=== PATIENT | male | born 1945 | race Caucasian/White ===

== ENCOUNTER → 2016-08-06 | Outpatient (CLI) | payer BC ==
[~2016-08-06] MED LIST: ASPI81TA28 PO; B-COTAB18 PO; CHOL100041 PO; CHOL400T PO; CIPR-255 PO; MULT-506 PO; OXYC-57 PO; PHEN95TA14 PO; SIMV20TA2 PO; TAMS0.4C38 PO
== END | disposition home or self-care (01) ==
LOC: C.PATH 15:04
PROVIDERS: ATTEND Dentist Oral and Maxillofacial Surgery
DX: K13.6 Irritative hyperplasia of oral mucosa (principal)

== ENCOUNTER → 2016-12-30 | Outpatient (CLI) | payer BC ==
[~2016-12-30] MED LIST changes: -CHOL100041 PO; -CIPR-255 PO; -OXYC-57 PO; -PHEN95TA14 PO; -TAMS0.4C38 PO
--- NOTE | 2016-12-30 09:48 | DIAGNOSTIC IMAGING REPORT ---
KUB HISTORY: N13.5 UPJ (ureteropelvic junction) [id number] COMPARISON: KUB 01/08/2016. FINDINGS: The bowel gas pattern is unremarkable. There are no dilated loops of small bowel to suggest an obstruction. There is a single stone within the lower pole the left kidney which measures 6 mm. 2 of the stones within the lower pole of the left kidney now reside within the cluster of stones at the expected location of the left renal pelvis. There are total 5 stones now identified within the left renal pelvis with the largest measuring 8 mm. No right renal calculi. No bladder calculi. No pneumoperitoneum or pneumatosis. IMPRESSION: 1. Two of the stones seen within the lower pole of the left kidney on the prior study have moved to the cluster of stones within the left renal pelvis as described above. 2. No right renal calculi. Electronically signed by: Clifford Kerr M.D. 12/30/2016 9:47 AM Dictated Date/Time: 12/30/2016 9:44 AM
--- NOTE | 2017-01-05 11:02 | CODING QUERY MEDICAL NECESSITY ---
CQSUPPORTING DIAGNOSIS NEEDED A supporting diagnosis is required for the test/procedure performed on this patient in order for us to be reimbursed by the patient's insurance. Please provide a supporting diagnosis for the following test/procedure listed below next to the test name along with your signature. *If there is no additional diagnosis for this patient that would support the following test/procedure please document that below next to the test/procedure. Test(s)/Procedure(s) that require a supporting diagnosis: DOS 12/30/16 PROSTATE SPECIFIC ANTIGEN (PSA) Provider Signature: Date: Thank you Ngoc [facility] Health Information Management Once completed, please kindly fax back to [phone] For questions please call [phone]
== END | disposition home or self-care (01) ==
LOC: C.RAD 09:15
PROVIDERS: ATTEND Urology
DX: N13.5 Crossing vessel and stricture of ureter without hydronephrosis (principal); N20.0 Calculus of kidney; Z12.5 Encounter for screening for malignant neoplasm of prostate

== ENCOUNTER → 2017-03-01 | Outpatient (CLI) | payer BC ==
--- NOTE | 2017-03-01 13:48 | DIAGNOSTIC IMAGING REPORT ---
KUB CLINICAL HISTORY: Gross hematuria. Nephrolithiasis. FINDINGS: An AP abdominal radiograph is compared to study dated 12/30/2016 and correlated with abdominal CT dated 07/02/2015. There are 6 calculi identified projecting over the left renal pelvis and the lower pole of the left kidney measuring up to 8 mm. No calcifications are seen projecting over the right kidney or along the course of the ureters. Vascular calcifications are again seen in the pelvis. There is a nonobstructed abdominal bowel gas pattern. Mild lumbosacral spondylosis is observed. IMPRESSION: 1. There are at least 6 nonobstructing left renal calculi measuring up to 8 mm. 2. Additional calculi project over the lower pole of the left kidney. Electronically signed by: Herb Christianson M.D. 03/01/2017 1:47 PM Dictated Date/Time: 03/01/2017 1:45 PM
== END | disposition home or self-care (01) ==
LOC: C.RAD 12:56
PROVIDERS: ATTEND Urology
DX: R31.0 Gross hematuria (principal); N20.0 Calculus of kidney

== ENCOUNTER → 2017-03-03 | Outpatient (CLI) | payer BC ==
[~2017-03-03] MED LIST changes: +CHOL100041 PO
== END | disposition home or self-care (01) ==
LOC: C.LABSPEC 17:17
PROVIDERS: ATTEND Urology
DX: Z00.00 Encounter for general adult medical examination without abnormal findings (principal); Z85.828 Personal history of other malignant neoplasm of skin; N13.30 Unspecified hydronephrosis; L57.0 Actinic keratosis; R31.0 Gross hematuria

== ENCOUNTER 2017-04-13 08:54 | Day surgery (SDC) | payer BC ==
[2017-03-29 14:17] VITALS: BMI 29.0
--- NOTE | 2017-03-29 14:39 | PAT Medication Instructions ---
Service Date Mar 29, 2017. Current Home Medication List Aspirin (Aspirin Ec), 81 MG PO QAM B-Complex Vitamins (Vitamin B Complex), 1 TAB PO QAM Cholecalciferol (D 1000), 1 CAP PO QAM Multivitamin (Multivitamin), 1 TAB PO QAM Simvastatin (Zocor), 10 MG PO QPM Medication Instructions For Your Scheduled Surgery - Hold the following medications 10 days prior to surgery per surgeon's instructions: Aspirin (Aspirin Ec), 81 MG PO QAM - Hold the following medications the morning of surgery: B-Complex Vitamins (Vitamin B Complex), 1 TAB PO QAM Cholecalciferol (D 1000), 1 CAP PO QAM Multivitamin (Multivitamin), 1 TAB PO QAM - Take the following medications as scheduled the night before surgery: Simvastatin (Zocor), 10 MG PO QPM *nothing to eat or drink after midnight* If you have any questions please call us at [phone] or [phone] or [phone]
[2017-03-29 15:08] LABS: BASO % 0.7 %; BASO ABS # 0.05 K/uL (0-0.2); COMPLETE YES; EOS % 4.2 %; IG% 0.1 %; LYMPH % 22.8 %; LYMPH ABS # 1.72 K/uL (1.2-3.4); MEAN CELL VOLUME 91.7 fL (80-100); MEAN CORPUSCULAR HEMOGLOBIN 31.8 pg (25-34); MEAN CORPUSCULAR HGB CONC 34.6 g/dl (32-36); NEUT % 59.2 %; PLATELET COUNT 243 K/uL (130-400); RED BLOOD COUNT 4.47 M/uL (4.7-6.1); WHITE BLOOD COUNT 7.54 K/uL (4.8-10.8)
--- NOTE | 2017-03-29 15:10 | DIAGNOSTIC IMAGING REPORT ---
CHEST PREADMISSION(PA/LAT) HISTORY: Preop. COMPARISON: Chest 12/09/2005. FINDINGS: The lungs are clear. Cardiac silhouette is normal in size. No pleural effusions. No pneumothorax. IMPRESSION: No acute process. Electronically signed by: Clifford Kerr M.D. 03/29/2017 3:09 PM Dictated Date/Time: 03/29/2017 3:07 PM
[2017-03-29 15:11] LABS: URINE APPEARANCE CLEAR (CLEAR); URINE BILIRUBIN NEG (NEG); URINE COLOR DK YELLOW; URINE NITRITE NEG (NEG); URINE PH 6.5 (4.5-7.5); URINE SPECIFIC GRAVITY 1.024 (1.000-1.030); UROBILINOGEN NEG (NEG)
[2017-03-29 15:16] LABS: MANUAL MICROSCOPIC REQUIRED? NO; REVIEW REQ? NO
[2017-03-29 15:42] LABS: BUN/CREATININE RATIO 13.2 (10-20); CALCIUM 9.6 mg/dl (8.5-10.1); CREATININE 1.11 mg/dl (0.60-1.40)
[~2017-04-13] VITALS: Ht 177.8 cm; Wt 91.5 kg
[~2017-04-13 08:54] MED LIST changes: +ATROPINE SULFATE 0.1 MG/ML 5ML SYR IV PRN; -CHOL400T PO; +CIPROFLOXACIN / D5W 400 MG IV SCH; +EpHEDrine SULFATE INJ 50 MG/ML AMP IV PRN; +FENTANYL CITRATE INJ 50 MCG/1 ML 2 ML VIAL IV PRN; +HYDROmorphone INJ 0.5 MG/0.5 ML SYR IV PRN; +LACTATED RINGER'S 1000ML 1,000 ML IV SCH; +ONDANSETRON INJ 2 MG/ML 2 ML VIAL IV PRN
[2017-04-13] MEDS ORDERED: MIDAZOLAM HCL 1 MG/ML 2ML VIAL ONE (09:17)
[2017-04-13] MEDS ORDERED: FENTANYL CITRATE INJ 50 MCG/1 ML 2 ML VIAL ONE ×2 (09:17→10:59)
[2017-04-13 09:19] VITALS: BP 160/88; PULSE 76; TEMP 37.1; O2SAT 97; Ht 177.8 cm; Wt 91.5 kg
--- NOTE | 2017-04-13 09:27 | History & Physical Bridge Note ---
H&P Re-Evaluation Bridge Note: I have examined the patient, reviewed the History & Physical and in the interval since the performance of the History & Physical I have noted the following changes of clinical significance: No changes noted
[2017-04-13] MEDS ORDERED: CONRAY 30% 150ML BOTTLE ONE (09:51)
[2017-04-13] MEDS ORDERED: PROPOFOL IV EMULSION 10 MG/ML 20 ML VIAL IV ONE (10:42)
[2017-04-13] MEDS ORDERED: ONDANSETRON INJ 2 MG/ML 2 ML VIAL ONE (10:42)
[2017-04-13] MEDS ORDERED: LIDOCAINE HCL 2% 2 ML VIAL (20MG/ML) ONE (10:42)
[2017-04-13] MEDS ORDERED: DEXAMETHASONE SOD INJ 4 MG/ML VIAL ONE (10:42)
[2017-04-13] MEDS ORDERED: PHENAZOPYRIDINE HCL 200 MG TAB PO STA (12:05)
[2017-04-13] MEDS ORDERED: KETOROLAC TROMETHAMINE 15 MG/ML VIAL IV. STA (12:05)
[2017-04-13] MEDS ORDERED: SODIUM CHLORIDE 0.9% 1000ML 1,000 ML IV SCH (12:05)
[2017-04-13] MEDS ORDERED: TAMS0.4C38 PO (12:08)
[2017-04-13] MEDS ORDERED: PHEN95TA14 PO (12:08)
[2017-04-13] MEDS ORDERED: OXYC-57 PO (12:08)
[2017-04-13] MEDS ORDERED: CIPR-255 PO (12:08)
--- NOTE | 2017-04-13 12:10 | Discharge Instructions ---
Discharge Instructions Date of Service Apr 13, 2017. Admission Reason for Admission: Stones Discharge Discharge Diagnosis / Problem: stones Discharge Goals Goal(s): Decrease discomfort, Improve function, Increase independence, Improve disease control, Prevent Disease Progression Activity Recommendations Activity Limitations: resume your previous activity Lifting Limitations: none Exercise/Sports Limitations: none May Resume Sexual Activity: when tolerated Shower/Bathe: no limitations Driving or Machine Use: resume 1 day after discharge . Instructions / Follow-Up Instructions / Follow-Up Please keep your previously scheduled follow up appointment. Current Hospital Diet Patient's current hospital diet: Discharge Diet Recommended Diet: Regular Diet Procedures Procedures Performed: Cystoscopy, Left Ureteroscopy, Laser Lithotripsy, Left Stent insertion Pending Studies Studies pending at discharge: no Medical Emergencies . Who to Call and When: Medical Emergencies: If at any time you feel your situation is an emergency, please call 911 immediately. . Non-Emergent Contact Non-Emergency issues call your: Urologist Call Non-Emergent contact if: you have a fever, temperature is above 101.5, your pain is not controlled, your pain is worsening . . "Provider Documentation" section prepared by Reji Rodriguez. . VTE Core Measure Inpt VTE Proph given/why not?: Treatment not indicated [place] Drug Monitoring Program Search Results: patient reviewed within database, no issues identified
--- NOTE | 2017-04-13 12:14 | [facility] Operative Report ---
Operative Report Operative Date Apr 13, 2017. Pre-Operative Diagnosis Ureteropelvic junction obstruction, nephrolithiasis. Post-Operative Diagnosis Same as preop. Procedure(s) Performed Cystoscopy, Left Ureteroscopy, Laser Lithotripsy, Left Stent insertion ([id number]) Surgeon Dr. Simmons Computing Architect Surgeon(s) None Estimated Blood Loss 5 ml Findings Numerous stones within a very dilated left renal pelvis and lower pole Specimens none. Drains ureteral stent Anesthesia Gen. Complication(s) None Disposition Recovery Room / PACU (stable) Indications Symptomatically adrenal stones in the setting of low-grade UPJ obstruction Description of Procedure The patient was identified in the preoperative holding area, appropriate informed consent reviewed and completed, and the patient was transported to the operating suite. Upon arrival he received appropriate preoperative antibiotics in the form of ciprofloxacin. Adequate general anesthesia was achieved, and he was placed in dorsal lithotomy position where he was sterilely prepped and draped in standard fashion. I began the case by passing a 22 Guamanian cystoscope with 30 lens. Inspection of the urethra revealed no evidence of significant stricture disease. He has a moderately enlarged prostate with relatively high bladder neck. Full inspection of the bladder was carried out, no abnormalities were noted. I turned my attention to the left ureteral orifice and cannulated it with a sensor wire and a 10 Guamanian double-lumen catheter. Of note, numerous opacities are visualized in the area of the kidney consistent with the stones seen on preoperative imaging. After advancing a second wire through the 10 Guamanian double-lumen catheter, I withdrew the 10 Guamanian double-lumen catheter. I then passed a ureteral access sheath to an area just below the UPJ. A flexible scope was passed via the sheath, and inspection of the UPJ revealed a very tight band. I was able to navigate my scope through this band into the kidney. The renal pelvis and all calyx is were all very dilated. There were 3 round appearing stones floating freely in the renal pelvis. 2 stones in the midpole and 3-4 stones in the lower pole. All of these were very round and smooth in appearance. I passed a 400 laser fiber and began fragmenting the stones. After treating the renal pelvic stones, I moved to the midpole, followed by the lower pole. All stones were fragmented pieces deemed safe for spontaneous passage. The renal pelvis and the midpole cleared appropriately, the lower pole was fragmented very well but there was still some layering of the remaining stone debris in the dependent portion of the lower pole. There were no large fragments within this that I could identify. I then performed a very careful repeat renoscopy before performing an exit ureteroscopy. There were no other large stones within the kidney nor within the ureter. There is no evidence of ureteral trauma from access sheath. A 6 Guamanian by 22-32 centimeter double-J ureteral stent was placed with an excellent curl seen in the renal pelvis as well as in the bladder. Bladder was decompressed and the case concluded. He was extubated and taken to the PACU in stable condition. I attest to the content of the Intraoperative Record and any orders documented therein. Any exceptions are noted below.
[2017-04-13] MEDS ORDERED: OXYCODONE/ACETAMINOPHEN 5-325 TAB PO PRN ×2 (12:15)
--- NOTE | 2017-04-13 12:37 | DIAGNOSTIC IMAGING REPORT ---
L KUB HISTORY: LEFT LASER/LITHO AND STENT PLACEMENT FLUOROSCOPY TIME: 51 seconds. FINDINGS: 5 fluoroscopic spot images were submitted for review. Initial images demonstrate multiple calculi seen within the left kidney and left renal pelvis. This is followed by retrograde placement of a guidewire and lithotripsy. The final image demonstrates placement of a left ureteral stent. Only the proximal portion of the stent is identified appears to be in good position. IMPRESSION: Fluoroscopy provided for lithotripsy and left ureteral stent placement . The proximal portion of the stent is identified and appears to be in good position. Electronically signed by: Clifford Kerr M.D. 04/13/2017 12:36 PM Dictated Date/Time: 04/13/2017 12:30 PM
--- NOTE | 2017-04-13 12:43 | Anesthesiology Progress Note ---
Anesthesia Post Op Note Date & Time Apr 13, 2017 at 12:43 Vital Signs Pain Intensity: 0 Vital Signs Past 12 Hours Date Time Temp Pulse Resp B/P (MAP) Pulse Ox O2 Delivery O2 Flow Rate FiO2 04/13/17 12:28 36.2 72 16 139/88 (104) 95 Room Air Oxymask 04/13/17 12:23 69 10 04/13/17 12:23 69 10 100 04/13/17 12:20 142/81 04/13/17 12:18 63 10 100 04/13/17 12:18 65 10 04/13/17 12:16 139/81 04/13/17 12:08 36.0 64 18 137/77 99 Oxymask 10 04/13/17 09:19 37.1 76 18 160/88 (112) 97 Room Air Notes Mental Status: alert / awake / arousable, participated in evaluation Pt Amnestic to Procedure: Yes Nausea / Vomiting: adequately controlled Pain: adequately controlled Airway Patency, RR, SpO2: stable & adequate BP & HR: stable & adequate Hydration State: stable & adequate Anesthetic Complications: no major complications apparent
[2017-04-13 12:55] VITALS: BP 142/71; PULSE 63; TEMP 36.6; O2SAT 94
[2017-04-13 13:25] VITALS: BP 151/63; PULSE 63; O2SAT 96
[2017-04-13 14:00] VITALS: BP 136/75; PULSE 64; TEMP 36.5; O2SAT 94
== END 2017-04-13 14:20 | disposition home or self-care (01) ==
LOC: C.ACU 08:54
PROVIDERS: ATTEND Urology
DX: N20.0 Calculus of kidney (principal); N13.5 Crossing vessel and stricture of ureter without hydronephrosis; Z79.82 Long term (current) use of aspirin; Z79.899 Other long term (current) drug therapy

== ENCOUNTER → 2017-04-20 | Outpatient (CLI) | payer BC ==
[~2017-04-20] MED LIST changes: -ATROPINE SULFATE 0.1 MG/ML 5ML SYR IV PRN; +CIPR-255 PO; -CIPROFLOXACIN / D5W 400 MG IV SCH; -EpHEDrine SULFATE INJ 50 MG/ML AMP IV PRN; -FENTANYL CITRATE INJ 50 MCG/1 ML 2 ML VIAL IV PRN; -HYDROmorphone INJ 0.5 MG/0.5 ML SYR IV PRN; -LACTATED RINGER'S 1000ML 1,000 ML IV SCH; -ONDANSETRON INJ 2 MG/ML 2 ML VIAL IV PRN; +OXYC-57 PO; +PHEN95TA14 PO; +TAMS0.4C38 PO
--- NOTE | 2017-04-20 10:22 | DIAGNOSTIC IMAGING REPORT ---
KUB HISTORY: Nephrolithiasis. COMPARISON: KUB 03/01/2017. FINDINGS: The bowel gas pattern is unremarkable. There are no dilated loops of small bowel to suggest an obstruction. Interval placement of left ureteral stent which appears be in good position. No ureteral calculi identified. Decrease in number of stones within the left kidney. The lower pole stone is now fragmented. The stones seen within the left renal pelvis have passed in the interval. No pneumoperitoneum or pneumatosis. IMPRESSION: 1. The left ureteral stent appears be in good position. 2. Decrease in number of stones within the left kidney with the lower pole stones now fragmented. Electronically signed by: Clifford Kerr M.D. 04/20/2017 10:21 AM Dictated Date/Time: 04/20/2017 10:19 AM
== END | disposition home or self-care (01) ==
LOC: C.RAD 09:57
PROVIDERS: ATTEND Urology
DX: N20.0 Calculus of kidney (principal)

== ENCOUNTER → 2017-05-12 | Outpatient (CLI) | payer BC ==
[~2017-05-12] MED LIST changes: -TAMS0.4C38 PO
== END | disposition home or self-care (01) ==
LOC: C.RDSM 11:43
PROVIDERS: ATTEND Physical Medicine & Rehabilitation Sports Medicine
DX: M25.561 Pain in right knee (principal)

== ENCOUNTER → 2017-08-26 | Outpatient (CLI) | payer BC | END | disposition home or self-care (01) | LOC: C.PATHSPEC 17:26 | PROVIDERS: ATTEND Physician Assistant | DX: C44.519 Basal cell carcinoma of skin of other part of trunk (principal) ==

== ENCOUNTER → 2017-09-16 | Outpatient (CLI) | payer BC | END | disposition home or self-care (01) | LOC: C.PATHSPEC 10:26 | PROVIDERS: ATTEND Plastic Surgery | DX: C44.519 Basal cell carcinoma of skin of other part of trunk (principal) ==

== ENCOUNTER 2024-07-14 20:06 | Inpatient (IN) ==
--- NOTE | 2024-07-14 20:22 | Emergency Department Note ---
Impression & Plan Closed left femoral fracture, Fall ED Provider Note NAME: UYEN PHILLIPS AGE: 78 SEX: M : 1945 ARRIVES VIA: Ambulance INFORMANT: Patient, EMS ED PROVIDER(S): Abilio Grant DO CHIEF COMPLAINT: Leg pain HPI: The patient is a 78-year-old male who presented to the emergency department for an evaluation of left thigh pain. 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 He states that he tripped and was trying to catch his balance. He planted his left leg and all of a sudden his left leg gave out on him. He fell onto his left side. The patient denies having any other injury. He has pain over his left thigh. He denies having any back pain or neck pain. He did not strike his head. He denies having any loss of conscious. He did receive fentanyl prior to arrival. ROS: See above HPI for pertinent positives & negatives. A total of 10 systems reviewed and were otherwise negative. PAST MEDICAL HISTORY: See Below PAST SURGICAL HISTORY: See Below FAMILY HISTORY: See Below SOCIAL HISTORY: See Below HOME MEDICATIONS: See Below ALLERGIES: See Below VITALS: See Below PHYSICAL EXAMINATION: GENERAL: The patient is awake and alert. The patient is very anxious and appears to be uncomfortable. EYES: The conjunctivae are clear. The pupils are round and reactive. EARS, NOSE, MOUTH AND THROAT: The nose is without any evidence of any deformity. NECK: The neck is nontender and supple. RESPIRATORY: Normal respiratory effort is noted there is no evidence of wheezing rhonchi or rales CARDIOVASCULAR: Regular rate and rhythm noted there no murmurs rubs or gallops normal S1 normal S2. GASTROINTESTINAL: The abdomen is soft. Abdomen is nontender. BACK: No midline tenderness or or step-off noted range of motion in flexion extension as well as rotation no signs of muscle spasm noted MUSCULOSKELETAL/EXTREMITIES: The patient is holding the left thigh in flexion. He has a significant deformity of the soft tissue of the lateral left thigh. He has no tenderness over the knee or the left leg. He has no tenderness over the hip. He has swelling over the medial aspect of the left thigh. SKIN: There is no obvious evidence of any rash. There are no petechiae, pallor or cyanosis noted. NEUROLOGIC: Patient is awake alert and oriented x3 MEDICAL DECISION MAKING: The patient is a 78-year-old male who has a history of a soft tissue tumor on his left thigh who presented to the emergency department for thigh pain. The patient was walking when he started to trip. He planted his left leg and felt a pop in his left leg. He fell to the ground and was unable to stand. He arrived via ambulance. He received IV pain medication prior to arrival. The patient appeared to have a large soft tissue deficit but this might be secondary to his previous surgery for a soft tissue tumor. Ultimately the patient was found on radiographic studies to have a large fracture of the shaft of his left femur. The bone does have an abnormal appearance but is not obviously consistent with a pathologic fracture. This could be related to the patient's radiation he received years ago when he initially had the tumor. He was treated with pain medication and splinting. He was reevaluated multiple times. I discussed his condition with the on-call orthopedic physician. They have agreed to see the patient as an inpatient for further management. I discussed patient's condition with the on-call [facility]. They have agreed to evaluate the patient in the emergency department. Triage Nursing notes reviewed. Prior medical records reviewed Vital Signs: reviewed and remarkable for elevated blood pressure. Differential diagnosis: Fracture, subluxation, dislocation, contusion, ligamentous injury, neurovascular, compartment syndrome, rhabdomyolysis, as well as other pathologies. ER treatment provided: See below Diagnostics interpreted by me: ECG: EKG was obtained in the emergency department. My interpretation is normal sinus rhythm at 70 bpm. There is no ectopy. There is no acute ST segment abnormalities noted. Cardiac Monitoring: An order was placed for continuous cardiac monitoring. The monitor shows a rate of 88 bpm with sinus rhythm. Laboratory studies: As stated above and show below. Imaging studies: See below. Radiographic imaging was reviewed by myself Consultation(s): I discussed this case with Dr. August I discussed this case with Dr. Camilo who is on-call for [facility] Past Med/Surg History Problem List (Updated 07/14/24 @ 22:14 by Abilio Grant DO) Fall (Acute) Closed left femoral fracture (Acute) Carpal tunnel syndrome, right Carpal tunnel syndrome, left Encounter for pre-operative examination Nephrolithiasis UPJ (ureteropelvic junction) obstruction (Acute) Personal history of malignant melanoma of skin (Acute) Left inguinal hernia (Acute) Calcium nephrolithiasis Squamous cell carcinoma of skin (Acute) Neoplasm of uncertain behavior of skin (Acute) Malignant melanoma of back (Acute) Basal cell carcinoma of upper back (Acute) Actinic keratosis (Acute) History of cancer of soft tissue >20 YR , HX CHEMO AND RADIATION - SOFT TISSUE SARCOMA Medical History History of COVID-19 + TEST BEGINNING OF JUN 2020 History of kidney stones History of basal cell cancer MULTIPLE IN PAST, MOST RECENT MAY 2020 (HEALED) Sarcoma of soft tissue HX, >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 ,HX SURGERY, HX CHEMO AND RADIATION History of melanoma X2 Hypercholesteremia Surgical History History of surgery FOR SARCOMA OF SOFT TISSUE, LEFT LEG History of colonoscopy History of repair of hiatal hernia History of lithotripsy History of melanoma excision X2 Hx of vasectomy Family History Sister Diabetes Social History Smoking Status: Never smoker Do You Dip or Chew Tobacco: No; Hx Alcohol Use: Yes Alcohol type: beer and wine Preferred Language: Sinhala Communication Ability: Effective Nursing Clerk Required: No Beliefs That Will Affect Care: None marital status: Current Living Situation: Spouse current occupational status: retired Feels Safe at Home: Yes Assistive Devices: Glasses and Hearing Aid - Bilateral Allergies Allergies Allergy/AdvReac Type Severity Reaction Status Date / Time No Known Allergies Allergy Verified 04/25/24 09:06 Home Meds Home Medications Medication Instructions Recorded Confirmed cholecalciferol (vitamin D3) 25 1,000 unit PO DAILY 02/16/19 04/25/24 mcg (1,000 unit) tablet multivitamin (Multiple Vitamins 1 tab PO DAILY 02/16/19 04/25/24 tablet) vitamin B complex 1 tab PO DAILY 02/16/19 04/25/24 simvastatin 20 mg tablet 10 mg PO QPM 09/24/20 04/25/24 Results & Data (ED) Vital Signs Vital Signs - 24 hr 07/14/24 20:11 07/14/24 20:12 07/14/24 20:22 Temperature 36.5 C Temperature Source Oral Pulse Rate 71 75 Pulse Rate [Apical] Respiratory Rate 18 Respiratory Effort / Characteristics Non-Labored Spontaneous Respiratory Depth Normal Respiratory Pattern Regular Blood Pressure 152/78 H Blood Pressure [Right Arm] Blood Pressure Mean 102 Blood Pressure Mean [Right Arm] Blood Pressure Position Lying Pulse Oximetry 98 98 Oxygen Delivery Method Room Air Room Air Sepsis Recent Fever Within 48 Hours No Sepsis New/Unexplained Change in Mental Status N/A Sepsis Action Taken by Nursing No Action Required 07/14/24 21:33 Temperature Temperature Source Pulse Rate Pulse Rate [Apical] 78 Respiratory Rate 18 Respiratory Effort / Characteristics Non-Labored Respiratory Depth Normal Respiratory Pattern Blood Pressure Blood Pressure [Right Arm] 163/102 H Blood Pressure Mean Blood Pressure Mean [Right Arm] 122 Blood Pressure Position Pulse Oximetry 99 Oxygen Delivery Method Room Air Sepsis Recent Fever Within 48 Hours Sepsis New/Unexplained Change in Mental Status Sepsis Action Taken by [facility] Medications Current Medication List: was personally reviewed by me Laboratory Data Attestation: I reviewed the patient's lab results. 07/14/24 20:25 07/14/24 20:25 Lab Results 07/14/24 Range/Units 20:25 WBC 8.89 (4.8-10.8) K/ul RBC 4.45 L (4.70-6.10) M/uL Hgb 14.2 (14.0-18.0) g/dl Hct 40.2 L (42.0-52.0) % MCV 90.3 (80.0-100.0) fL MCH 31.9 (25.0-34.0) pg MCHC 35.3 (32.0-36.0) g/dL RDW Std Deviation 45.5 (36.4-46.3) fL RDW Coeff of Rachel 13.7 (11.5-14.5) % Plt Count 269 (130-400) K/uL MPV 10.6 (9.4-12.4) fL Immature Gran % (Auto) 0.2 % Neut % (Auto) 69.1 % Lymph % (Auto) 18.6 % Peach % (Auto) 9.6 % Eos % (Auto) 1.8 % Baso % (Auto) 0.7 % Neut # (Auto) 6.15 (1.40-6.50) K/uL Lymph # (Auto) 1.65 (1.20-3.40) K/uL Peach # (Auto) 0.85 H (0.11-0.59) K/uL Eos # (Auto) 0.16 (0.00-0.50) K/uL Baso # (Auto) 0.06 (0.00-0.20) K/uL Immature Gran # (Auto) 0.02 (0.01-0.20) K/uL PT 11.4 (9.0-12.0) Seconds INR 1.1 (0.9-1.1) APTT 25 (21-31) Seconds PTT Ratio 0.9 Sodium 136 (136-145) mmol/L Potassium 3.9 (3.5-5.1) mmol/L Chloride 101 (98-107) mmol/L Carbon Dioxide 27 (21-32) mmol/L Anion Gap 8 (3-11) BUN 20 (6-23) mg/dl Creatinine 1.04 (0.6-1.4) mg/dl Est Cr Clr Drug Dosing 66.4 ml/min eGFR 73.50 BUN/Creatinine Ratio 19.2 (10-20) Glucose 106 H (70-99(Fasting)) mg/dl Calcium 9.5 (8.6-10.3) mg/dl Total Bilirubin 1.3 H (0.2-1.0) mg/dl AST 34 (13-39) U/L ALT 35 (7-52) U/L Alkaline Phosphatase 103 (34-104) U/L Troponin I High Sens 7.2 (0-20) pg/ml Total Protein 7.5 (6.0-8.3) gm/dl Albumin 4.6 (3.4-5.0) gm/dl Globulin 2.9 (2.5-4.0) gm/dl Albumin/Globulin Ratio 1.6 (0.9-2) Lipase 26 (11-82) U/L Administered Medications Discontinued Medications Morphine Sulfate (Morphine Sulfate 4 Mg/Ml 1 Ml Carp\Vial) 4 mg IV NOW STA Stop: 07/14/24 20:16 Last Admin: 07/14/24 20:24 Dose: 4 mg Documented By: Imaging Data Attestation: I personally reviewed and interpreted this imaging study as follows: My Impression: 1 view chest x-ray was obtained in the emergency department. My interpretation is no free air or definite infiltrate, final report pending. X-ray of the left femur was obtained in the emergency department. My interpretation is fracture through the shaft of the left femur, there was displacement as well as some shortening, final report pending Discharge Plan Visit Data Chief Complaint: Leg Injury/Pain Stated Complaint: L Femur Fx ED Provider: Abilio Grant Discharge Problem: Closed left femoral fracture, Fall Patient Disposition: Being Evaluated by Hospitalist Forms Stand Alone Forms: My [facility] Prescriptions Prescriptions: No Action cholecalciferol (vitamin D3) 1,000 unit (25 mcg) tablet 1,000 unit PO DAILY multivitamin [Multiple Vitamins] tablet 1 tab PO DAILY vitamin B complex tablet 1 tab PO DAILY simvastatin 20 mg tablet 10 mg PO QPM Referrals Referrals: David Linton DO [Primary Care Provider] - Discharge Problem: Closed left femoral fracture Qualifiers: Encounter type: initial encounter Femur location: unspecified portion of femur Fracture morphology: unspecified fracture morphology Qualified Code(s): S72.92XA - Unspecified fracture of left femur, initial encounter for closed fracture
[2024-07-14] MEDS: MoRPHine SULFATE 4 MG/ML 1 ML CARP\\VIAL IV STA (20:24)
[2024-07-14 20:54] LABS: Basophils # (auto) 0.06 K/uL (0.00-0.20); Basophils % (auto) 0.7 %; Eosinophils # (auto) 0.16 K/uL (0.00-0.50); Eosinophils % (auto) 1.8 %; Hematocrit (blood only) 40.2 % (42.0-52.0); Hemoglobin 14.2 g/dl (14.0-18.0); Immature Granulocytes # (auto) 0.02 K/uL (0.01-0.20); Immature Granulocytes % (auto) 0.2 %; Lymphocytes # (auto) 1.65 K/uL (1.20-3.40); Lymphocytes % (auto) 18.6 %; Mean Corpuscular Hemoglobin 31.9 pg (25.0-34.0); Mean Corpuscular Hgb Conc 35.3 g/dL (32.0-36.0); Mean Corpuscular Volume 90.3 fL (80.0-100.0); Mean Platelet Volume 10.6 fL (9.4-12.4); Monocytes # (auto) 0.85 K/uL (0.11-0.59); Monocytes % (auto) 9.6 %; Neutrophils # (auto) 6.15 K/uL (1.40-6.50); Neutrophils % (auto) 69.1 %; Platelet Count 269 K/uL (130-400); RDW Coefficient of Variation 13.7 % (11.5-14.5); RDW Standard Deviation 45.5 fL (36.4-46.3); Red Blood Count 4.45 M/uL (4.70-6.10); White Blood Count 8.89 K/ul (4.8-10.8)
[2024-07-14 21:06] LABS: Albumin Globulin Ratio 1.6 (0.9-2); Albumin Level 4.6 gm/dl (3.4-5.0); BUN Creatinine Ratio 19.2 (10-20); Bilirubin,Total 1.3 mg/dl (0.2-1.0); Calcium 9.5 mg/dl (8.6-10.3); Creatinine Clr Calc Pharmacy 66.4 ml/min; Globulin 2.9 gm/dl (2.5-4.0); Potassium 3.9 mmol/L (3.5-5.1); Total Protein 7.5 gm/dl (6.0-8.3)
[2024-07-14 21:11] LABS: Troponin I High Sensitivity 7.2 pg/ml (0-20)
[2024-07-14 21:16] LABS: INR 1.1 (0.9-1.1); Partial Thromboplastin Ratio 0.9; Partial Thromboplastin Time 25 Seconds (21-31); Prothrombin Time 11.4 Seconds (9.0-12.0)
[2024-07-14] MEDS: MoRPHine SULFATE 4 MG/ML 1 ML CARP\\VIAL IV PRN (22:09)
[2024-07-14] MEDS ORDERED: NALOXONE HCL 0.4 MG/1 ML VIAL/CARP IV PRN (22:11)
[2024-07-14] MEDS ORDERED: MAGNESIUM HYDROXIDE SUSP 30 ML UDC PO PRN (22:11)
[2024-07-14] MEDS ORDERED: HYDROmorphone INJ 0.5 MG/0.5 ML SYR IV PRN ×2 (22:11)
[2024-07-14] MEDS ORDERED: bisacodyL 10 MG SUPP PR PRN (22:11)
--- NOTE | 2024-07-14 22:15 | History & Physical Report ---
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 The patient reports that while he was working in his workshop, he tripped and fell, landing on his left leg, and developed immediate discomfort and inability to bear weight. Workup in the emergency department included a x- ray of the left femur which showed a closed fracture of the femur, with CT scan of femur confirming oblique fracture of the left femoral shaft, being displaced laterally up to 3.5 cm. The patient was seen by orthopedic surgery in the emerg ency department, with plans to undergo shlomo placement on 07/16/24. #Closed left femoral shaft fracture- 3.5 cm displacement noted N.p.o. after midnight Acetaminophen 1 g IV every 8 hours as needed for mild pain or fever Dilaudid 0.25 mg IV every 3 hours as needed for moderate pain Dilaudid 0.5 mg IV every 3 hours as needed for severe pain Narcan IV per protocol for reversal as needed of respiratory depression Zofran 4 mg IV every 6 hours as needed Consult orthopedic surgery Status post fall- Patient describes a mechanical fall, without need for cardiac or neurologic workup at this time Chronic medical issues: History of sarcoma-to be determined if this is a pathologic fracture Hyperlipidemia-holding simvastatin while n.p.o. History of Present Illness Chief Complaint: The patient presents to the emergency department with complaint of left thigh pain, after he tripped and fell, having lost his balance, and unable to have his left leg supported him when he tried to put weight on it. 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 Workup in the emergency department included a x-ray of the left femur which showed a closed fracture of the femur, with CT scan of femur confirming oblique fracture of the left femoral shaft, being displaced laterally up to 3.5 cm. The patient was seen by orthopedic surgery in the emergency department, with plans to undergo shlomo placement on 07/16. Allergies Allergy/AdvReac Type Severity Reaction Status Date / Time No Known Allergies Allergy Verified 04/25/24 09:06 Home Medications Medication Instructions Recorded Confirmed Type cholecalciferol (vitamin D3) 25 1,000 unit PO DAILY 02/16/19 04/25/24 History mcg (1,000 unit) tablet multivitamin (Multiple Vitamins 1 tab PO DAILY 02/16/19 04/25/24 History tablet) vitamin B complex 1 tab PO DAILY 02/16/19 04/25/24 History simvastatin 20 mg tablet 10 mg PO QPM 09/24/20 04/25/24 History Past Med/Surg History Problem List Fall (Acute) Closed left femoral fracture (Acute) Carpal tunnel syndrome, right Carpal tunnel syndrome, left Encounter for pre-operative examination Nephrolithiasis UPJ (ureteropelvic junction) obstruction (Acute) Personal history of malignant melanoma of skin (Acute) Left inguinal hernia (Acute) Calcium nephrolithiasis Squamous cell carcinoma of skin (Acute) Neoplasm of uncertain behavior of skin (Acute) Malignant melanoma of back (Acute) Basal cell carcinoma of upper back (Acute) Actinic keratosis (Acute) History of cancer of soft tissue >20 YR , HX CHEMO AND RADIATION - SOFT TISSUE SARCOMA Medical History History of COVID-19 + TEST BEGINNING OF JUN 2020 History of kidney stones History of basal cell cancer MULTIPLE IN PAST, MOST RECENT MAY 2020 (HEALED) Sarcoma of soft tissue HX, >20 YR ,HX SURGERY, HX CHEMO AND RADIATION History of melanoma X2 Hypercholesteremia Surgical History History of surgery FOR SARCOMA OF SOFT TISSUE, LEFT LEG History of colonoscopy History of repair of hiatal hernia History of lithotripsy History of melanoma excision X2 Hx of vasectomy Family History Sister Diabetes Social History Smoking Status: Never smoker Do You Dip or Chew Tobacco: No; Hx Alcohol Use: Yes Alcohol type: beer and wine Preferred Language: Belarusian Communication Ability: Effective Despatching And Receiving Clerk Required: No Beliefs That Will Affect Care: None marital status: Current Living Situation: Spouse current occupational status: retired Feels Safe at Home: Yes Assistive Devices: Glasses and Hearing Aid - Bilateral Review of Systems Review of Systems: The patient denies chest pain, palpitations, shortness of breath, dyspnea on exertion, cough, lower extremity swelling, sore throat, fevers, chills, sweats, weight change, fatigue, nausea, vomiting, diarrhea , constipation, abdominal pain, pelvic pain, blood in urine or stool, dysuria, urinary frequency or urgency, lightheadedness, dizziness, headache, memory loss, loss of consciousness, rash, abnormal bruising or bleeding, focal or generalized weakness, numbness or tingling in arms or right leg, generalized arthralgias or myalgias, back or neck pain, or night sweats. The review of systems is otherwise negative other than for that already noted above, and at least 10 systems have been reviewed. Physical Exam Physical Exam: The patient is awake, alert and oriented 3, well developed and well nourished, normocephalic and atraumatic, lying in bed and in no acute distress. HEENT--PERRL, EOMI, mucous membranes and oropharynx dry. Neck--supple. No JVD. No bruits. Thyroid normal, trachea midline, no adenopathy. Heart--normal S1 and S2. No murmurs, rubs or gallops. Lungs--clear bilaterally, no respiratory distress, no accessory muscle use. Abdomen--normal bowel sounds and soft. Nontender. Nondistended, no hernias or masses, no organomegaly. Extremities--no cyanosis or clubbing. No edema. Deformity left thigh. there are good distal pulses b/l. Dermatologic--normal skin turgor, normal color, no abnormal lymph nodes, no rash. Neurologic--cranial nerves II through XII grossly intact. Rheumatologic--normal range of motion, except for left leg Psychiatric--normal affect. Results & Data Results & Data Vital Signs (Past 12 Hours) Vital Signs Temp Pulse Pulse Resp BP BP Pulse Ox 07/14/24 21:33 78 18 163/102 H 99 07/14/24 20:22 98 07/14/24 20:12 75 07/14/24 20:11 36.5 C 71 18 152/78 H 98 O2 Del Method 07/14/24 21:33 Room Air 07/14/24 20:22 Room Air 07/14/24 20:12 07/14/24 20:11 Room Air Code Status & VTE Plan Code Status Full code VTE Prophylaxis Plan VTE Prophylaxis will be ordered: Yes PG Care Time/CCT Total # of Minutes Spent Total Time Spent with Patient: Total time spent is greater than 50% in coordination of care (as documented) at patient's floor/unit and/or counseling patient: Coding Level of Care Code 36546 INT INP/OBS CARE 2MIN Diagnoses Closed left femoral fracture S72.92XA Encounter type: initial encounter Femur location: unspecified portion of femur Fracture morphology: unspecified fracture morphology Fall W19.XXXA (1) Closed left femoral fracture Encounter type: initial encounter Femur location: unspecified portion of femur Fracture morphology: unspecified fracture morphology Qualified Code(s): S72.92XA - Unspecified fracture of left femur, initial encounter for closed fracture
--- NOTE | 2024-07-14 22:16 | CT Scan Report ---
Exam(s): CT EXTREMITY LEFT LOWER Without Contrast EXAM: CT Left Lower Extremity Without Intravenous Contrast CLINICAL HISTORY: Reason for exam: left thigh pain. TECHNIQUE: Axial computed tomography images of the left lower extremity without intravenous contrast. CTDI is 24 mGy and DLP is 1206 mGy-cm. Automated exposure control was utilized for the study. A dose lowering technique was utilized adhering to the principles of ALARA. COMPARISON: No relevant prior studies available. FINDINGS: Bones/joints: Oblique fracture of the left femoral shaft displaced laterally by up to 3.5 cm. No other fracture. No dislocation. Soft tissues: Soft tissue edema around the fracture site. IMPRESSION: Oblique fracture of the left femoral shaft. Electronically signed by: Mikey Carver MD 07/14/24 22:15 PM
--- NOTE | 2024-07-14 22:40 | XRay Report ---
Exam(s): XR CXR 1 VIEW EXAM: XR Chest, 1 View CLINICAL HISTORY: Reason for exam: Chest pain, nonspecific. TECHNIQUE: Frontal view of the chest. COMPARISON: 11/22/2007 FINDINGS: Lungs: No consolidation. No overt edema. Pleural space: No pleural effusion. No pneumothorax. Heart: Unremarkable. No cardiomegaly. IMPRESSION: No acute cardiopulmonary abnormality. Electronically signed by: Mikey Carver MD 07/14/24 22:39 PM
[2024-07-14] MEDS ORDERED: hydrALAZINE HCL 20 MG/ML VIAL IV PRN (22:50)
[2024-07-14] MEDS ORDERED: ACETAMINOPHEN 1000 MG/100 ML IV IV PRN (22:50)
[2024-07-14] MEDS ORDERED: ONDANSETRON INJ 2 MG/ML 2 ML VIAL IV PRN (22:50)
--- NOTE | 2024-07-14 22:52 | XRay Report ---
Exam(s): XR LEFT FEMUR, 2 views EXAM: XR Left Femur, 2 Views CLINICAL HISTORY: Reason for exam: fall. TECHNIQUE: Frontal and lateral views of the left femur. COMPARISON: No relevant prior studies available. FINDINGS: Bones/joints: Oblique fracture of the left femoral shaft. Both sclerotic and lytic lesions within the mid to distal femur. Soft tissues: Unremarkable. IMPRESSION: 1. Oblique fracture of the left femoral shaft. 2. Both sclerotic and lytic lesions within the mid to distal femur. Metastatic disease and myeloma on the differential. Electronically signed by: Mikey Carver MD 07/14/24 22:51 PM
[2024-07-14] MEDS: HYDROmorphone INJ 1 MG/ML SYRINGE IV STA (22:58)
[2024-07-14] MEDS ORDERED: ACETAMINOPHEN 1,000 MG/100 ML VIAL IV PRN (23:15)
--- NOTE | 2024-07-14 23:22 | Orthopedic Consultation ---
Date of Consultation July 14, 2024 Assessment & Plan (1) Closed left femoral fracture: -Patient has an acute oblique spiral fracture of the left middle third of the femoral shaft which is displaced. Recommend surgical intervention for treatment of the fracture with open reduction internal fixation versus intramedullary nail. Given the patient's history of sarcoma in the area, there is concern for potential healing issues in the future related to this fracture. This was discussed with the patient and his family. There is also possibility the fracture is pathologic in nature given his history of sarcoma and imaging studies. These findings could also possibly be related to his history of radi ation in the area. Without previous imaging of the femur it is difficult to fully rule in or out pathologic aspect to the fracture. -A well-padded well molded long-leg posterior splint was applied with the assistance of emergency department personnel this will be maintained until surgery. -Nonweightbearing left lower extremity -Bedrest -Ice, elevate left lower extremity for pain and swelling -Pain control per admitting team, recommend IV pain medications as patient is going to be n.p.o. for surgery -N.p.o. at midnight for surgery planned for 07/15/2024 -Hold all anticoagulation for pending surgery -CBC, CHEM panel, UA for planned surgery. Recommend repeat CBC in the morning due to possibility of blood loss secondary to fracture. -Type and screen for surgery -Chest x-ray and EKG prior to surgery -A long and detailed discussion was had with the patient and his son and at bedside regarding the diagnosis, treatment options, treatment plan, alternatives to our treatment plan recommendations, and possible outcomes. Specifically we discussed operative versus nonoperative intervention. We discussed potential treatment with open reduction internal fixation with orthopedic hardware co nsisting of plate and screws, intramedullary nail, or a combination of the 2. We discussed the risks, benefits, and alternatives to surgical intervention including but not limited to pain, infection, nerve or blood vessel damage, blood loss, malunion, nonunion, need for additional procedures, hardware failure, blood clot, cardiac issues, stroke, and even . We also discussed nonoperative treatment which would consist of splinting and/or cast treatment. We recommend against this given the displaced nature of the fracture and difficulty with maintaining fracture alignment without surgical intervention as well as the increased risk related to immobility including bedsores, possible pneumonia, pain, limited mobility. They expressed understanding and expressed that they would like to proceed with planning for surgical intervention. -All of the patient and his family's questions were answered to their satisfaction. -Examination findings, assessment and plan were reviewed with Dr. August, patient is boarded for OR for 07/15/[address] August. He will be in to personally evaluate the patient prior to surgery and will update the plan with any pertinent changes as he deems necessary. History of Present Illness Reason for Consultation: Left femur fracture Attending Physician: Horace Jolly MD History of Present Illness This patient is a 78-year-old male who has a history of left thigh soft tissue sarcoma treated with surgery, chemotherapy, and radiation 25 years ago. Patient reports that earlier this evening he was working in his workshop in his basement, he noted that he had left some of his toes plugged and he turned to go back and unplug his tools when he tripped and suffered a fall. He states he thinks he may have felt a snapping in his thigh prior to falling. He was unable to get up due to immediate onset of left thigh pain and deformity. EMS was summoned and he was brought to the emergency department. Patient currently reports that he has significant pain in his left thigh which is worse with any movement and is better with immobilization and rest. He denies any numbness or tingling in the left lower extremity. He denies any history of antecedent left thigh pain prior to this injury. He is a very active injury individual at baseline he walks regularly, and does not use any assistive devices. He denies any pain currently about his left knee, ankle, or foot. He denies any pain about his right lower extremity. He denies any pain about his bilateral upper extremities. He denies striking his head or loss of consciousness. He denies any neck or back pain. He denies any history of medication allergies, and denies any use of blood thinners. He denies any night pain, antecedent left thigh pain, unexpected weight gain or loss, night sweats, fevers, or chills. Allergies Allergy/AdvReac Type Severity Reaction Status Date / Time No Known Allergies Allergy Verified 04/25/24 09:06 Home Medications Medication Instructions Recorded Confirmed Type cholecalciferol (vitamin D3) 25 1,000 unit PO DAILY 02/16/19 04/25/24 History mcg (1,000 unit) tablet multivitamin (Multiple Vitamins 1 tab PO DAILY 02/16/19 04/25/24 History tablet) vitamin B complex 1 tab PO DAILY 02/16/19 04/25/24 History simvastatin 20 mg tablet 10 mg PO QPM 09/24/20 04/25/24 History Patient History Medical History History of COVID-19 + TEST BEGINNING OF JUN 2020 History of kidney stones History of basal cell cancer MULTIPLE IN PAST, MOST RECENT MAY 2020 (HEALED) Sarcoma of soft tissue HX, >20 YR ,HX SURGERY, HX CHEMO AND RADIATION History of melanoma X2 Hypercholesteremia Surgical History History of surgery FOR SARCOMA OF SOFT TISSUE, LEFT LEG History of colonoscopy History of repair of hiatal hernia History of lithotripsy History of melanoma excision X2 Hx of vasectomy Family History Sister Diabetes Social History Smoking Status: Never smoker Do You Dip or Chew Tobacco: No; Hx Alcohol Use: Yes Alcohol type: beer and wine Preferred Language: Liberian Communication Ability: Effective Oil Rag Washer Required: No Beliefs That Will Affect Care: None marital status: Current Living Situation: Spouse current occupational status: retired Feels Safe at Home: Yes Assistive Devices: Glasses and Hearing Aid - Bilateral Review of Systems Constitutional: Denies any recent weight gain or loss, night sweats, night pain, fevers, or chills. Neurologic: Denies any loss of consciousness Hematologic / Lymphatic: Denies any history of blood clots Physical Exam Constitutional: The patient is a well-developed, well-nourished male who appears his stated age. He is in mild distress secondary to acute pain from his fracture. Neck: No deformity, trachea is midline, nontender to palpation about the cervical spine. Patient is able to actively flex, extend, and rotate his neck without pain. Musculoskeletal: Left lower extremity: -Skin about the left lower extremity is clean dry and intact without any erythema, ecchymosis, or evidence of open injury. Patient does have a well- healed surgical incision about the lateral aspect of the left thigh primarily centered about the mid to distal one third. -There is noted decreased muscle and sof t tissue mass along the lateral aspect of the left thigh -Thigh is soft and compressible -Tender to palpation about the left thig h with visible deformity of the left femur. No areas of skin blanching, tenting, or concern for open injury. -Nontender to palpation over the left gr eater trochanter, left knee, left tibia or fibula, left ankle, or left foot. -Range of motion testing deferred second justin to acute thigh pain with any mo vement of the left lower extremity -Sensation is intact to light touch in t he L4-S1 dermatomes -EHL/FHL/GS/TA are motor intact -DP/PT pulses palpable -Capillary refill less than 3 seconds in the toes A brief secondary survey of the bilateral upper extremities reveals no tenderness to palpation along the bilateral clavicles, shoulders, humerus, elbows, forearms, wrists, or hands. Patient was able to actively flex and extend the shoulders, elbows, wrists, and hands without any pain. The skin about the bilateral upper extremities is clean, dry, and intact.. A brief secondary survey about the right lower extremity reveals no tenderness to palpation about the right hip, thigh, knee, tibia or fibula, ankle, or foot. Patient is able to actively move the right lower extremity without any pain. The skin about the right lower extremity is clean, dry, and intact. Results & Data Vital Signs (Past 12 Hours) Vital Signs Temp Pulse Pulse Resp BP BP Pulse Ox 07/14/24 21:33 78 18 163/102 H 99 07/14/24 20:22 98 07/14/24 20:12 75 07/14/24 20:11 36.5 C 71 18 152/78 H 98 O2 Del Method 07/14/24 21:33 Room Air 07/14/24 20:22 Room Air 07/14/24 20:12 07/14/24 20:11 Room Air Diagnostic Findings AP and lateral x-rays of the left femur independently reviewed and interpreted by myself demonstrate a long oblique spiral fracture of the midshaft of the left femur with shortening, apex anterior and lateral angulation, and moderate displacement. Of note there is increased sclerosis within the medullary canal of the left femur particularly from the fracture site and distal into the metaphysis. There are also some scattered lucencies noted in the region of the fracture. This may be changes secondary to history of surgical intervention and radiation in the area versus possibly other pathologic process. CT scan of the left femur was also independently reviewed and interpreted demonstrating the above-noted long oblique spiral fracture of the midshaft of the left femur with shortening, apex anterior and lateral angulation and moderate displacement. The above noted sclerotic changes in the medullary canal are also noted as well as scattered lucencies noted within the bone of the femur particularly from the midshaft distal. These may be secondary to changes from his history of surgical intervention and radiation in the area versus other metastatic or pathologic process. (1) Closed left femoral fracture Encounter type: initial encounter Femur location: unspecified portion of femur Fracture morphology: unspecified fracture morphology Qualified Code(s): S72.92XA - Unspecified fracture of left femur, initial encounter for closed fracture
[2024-07-15 06:23] LABS: Basophils # (auto) 0.04 K/uL (0.00-0.20); Basophils % (auto) 0.4 %; Hematocrit (blood only) 40.4 % (42.0-52.0); Hemoglobin 14.4 g/dl (14.0-18.0); Immature Granulocytes # (auto) 0.02 K/uL (0.01-0.20); Immature Granulocytes % (auto) 0.2 %; Lymphocytes # (auto) 1.35 K/uL (1.20-3.40); Lymphocytes % (auto) 13.3 %; Mean Corpuscular Hemoglobin 31.7 pg (25.0-34.0); Mean Corpuscular Hgb Conc 35.6 g/dL (32.0-36.0); Mean Platelet Volume 10.3 fL (9.4-12.4); Monocytes # (auto) 0.99 K/uL (0.11-0.59); Monocytes % (auto) 9.8 %; Neutrophils # (auto) 7.72 K/uL (1.40-6.50); Neutrophils % (auto) 76.3 %; Platelet Count 271 K/uL (130-400); RDW Coefficient of Variation 13.4 % (11.5-14.5); Red Blood Count 4.54 M/uL (4.70-6.10); White Blood Count 10.12 K/ul (4.8-10.8)
[2024-07-15 06:38] LABS: Albumin Level 4.4 gm/dl (3.4-5.0); BUN Creatinine Ratio 16.5 (10-20); Calcium 9.5 mg/dl (8.6-10.3); Creatinine Clr Calc Pharmacy 71.2 ml/min; Magnesium 1.9 mg/dl (1.7-2.4); Phosphorus 3.4 mg/dl (2.5-4.9); Potassium 4.1 mmol/L (3.5-5.1)
[2024-07-15] MEDS ORDERED: ONDANSETRON INJ 2 MG/ML 2 ML VIAL ONE (07:10)
[2024-07-15] MEDS ORDERED: MIDAZOLAM HCL 1 MG/ML 2ML VIAL ONE (07:10)
[2024-07-15] MEDS ORDERED: fentaNYL citrate PF 100 MCG/2 ML VIAL ONE ×3 (07:10→10:13)
[2024-07-15] MEDS ORDERED: GLYCOPYRROLATE 0.2 MG/ML VIAL ONE (07:10)
[2024-07-15] MEDS ORDERED: ROCURONIUM BROMIDE 10 MG/ML 5 ML VIAL IV ONE (07:10)
[2024-07-15] MEDS ORDERED: PROPOFOL IV EMULSION 10 MG/ML 20 ML VIAL IV ONE (07:10)
[2024-07-15] MEDS ORDERED: DEXAMETHASONE SOD INJ 4 MG/ML VIAL ONE (07:10)
[2024-07-15] MEDS ORDERED: LIDOCAINE 2% 2 ML VIAL/AMP(20MG/ML) INFIL ONE (07:10)
[2024-07-15] MEDS ORDERED: NEOSTIGMINE METHYLSULFATE 1 MG/ML 10ML VIAL ONE (07:10)
[2024-07-15 07:11] LABS: INR 1.1 (0.9-1.1); Partial Thromboplastin Time 27 Seconds (21-31); Prothrombin Time 11.4 Seconds (9.0-12.0)
[2024-07-15] MEDS ORDERED: PHENYLEPHRINE HCL 10 MG/ML VIAL ONE (07:14)
--- NOTE | 2024-07-15 07:14 | Anesthesiology Consultation ---
Date of Service July 15, 2024 Assessment & Plan (1) Encounter for pre-operative examination: Chart Review Chart Review: Acceptable Risk for Surgery History Surgery Operation Date: 07/15/24 07:30 Proposed Procedures p Intramedullary Marck Femur(Left) - Alfred August MD Height/Weight Height: 5 ft 10 in Weight: 91.1 kg Allergies Allergy/AdvReac Type Severity Reaction Status Date / Time No Known Allergies Allergy Verified 04/25/24 09:06 Medications Home Medications Medication Instructions Recorded Confirmed Last Taken cholecalciferol (vitamin D3) 25 1,000 unit PO DAILY 02/16/19 04/25/24 10/11/20 mcg (1,000 unit) tablet multivitamin (Multiple Vitamins 1 tab PO DAILY 02/16/19 04/25/24 10/11/20 tablet) vitamin B complex 1 tab PO DAILY 02/16/19 04/25/24 10/11/20 simvastatin 20 mg tablet 10 mg PO QPM 09/24/20 04/25/24 10/11/20 Past Medical History Medical History History of COVID-19 + TEST BEGINNING OF JUN 2020 History of kidney stones History of basal cell cancer MULTIPLE IN PAST, MOST RECENT MAY 2020 (HEALED) Sarcoma of soft tissue HX, >20 YR ,HX SURGERY, HX CHEMO AND RADIATION History of melanoma X2 Hypercholesteremia Past Family History Family History Sister Diabetes Past Surgical History Surgical History History of surgery FOR SARCOMA OF SOFT TISSUE, LEFT LEG History of colonoscopy History of repair of hiatal hernia History of lithotripsy History of melanoma excision X2 Hx of vasectomy Social History Smoking Status: Never smoker Do You Dip or Chew Tobacco: No Hx Alcohol Use: Yes Alcohol type: beer and wine alcohol intake frequency: holidays/special occasions only Hx Substance Use: No substance use type: does not use Physical Exam Vital Signs Last Vital Signs Temp 36.5 C 07/14/24 20:11 Pulse 89 07/15/24 06:24 Resp 10 L 07/15/24 06:24 BP 146/80 H 07/15/24 06:24 Pulse Ox 96 07/15/24 01:30 O2 Del Method Room Air 07/14/24 21:33 Testing Laboratory Results 07/15/24 06:03 07/15/24 06:03 PT 11.4 Seconds (9.0-12.0) 07/15/24 06:03 INR 1.1 (0.9-1.1) 07/15/24 06:03 APTT 27 Seconds (21-31) 07/15/24 06:03 Electrocardiogram Date: 07/14/24 Findings: + NSR @ (72)
[2024-07-15] MEDS ORDERED: ceFAZolin 330 MG/ML 1 GM VIAL ONE (07:17)
[2024-07-15] MEDS ORDERED: ATROPINE SULFATE 0.1 MG/ML 10ML SYR IV PRN (07:23)
[2024-07-15] MEDS ORDERED: HYDROmorphone INJ 1 MG/ML SYRINGE IV PRN (07:23)
[2024-07-15] MEDS ORDERED: KETOROLAC 30 MG/ML VIAL IV PRN (07:23)
[2024-07-15] MEDS ORDERED: PROMETHAZINE HCL 6.25 MG in SODIUM CHLORIDE 0.9% 50 ML IV PRN (07:23)
--- NOTE | 2024-07-15 07:28 | History & Physical Bridge Note ---
Date of Service July 15, 2024 History & Physical Bridge Note I have examined the patient, reviewed the History & Physical and in the interval since the performance of the History & Physical I have noted the following changes of clinical significance: no changes noted Patient seen and evaluated. For further details please refer to Dr. Neely's dictation. No antecedent pain. Patient's history of prior sarcoma treatment is noted. Fell yesterday with a left femur fracture. Femur shaft. Today he is co mfortable. His thigh is swollen but not tense. He has intact sensation of the foot DP pulses 1+ he can flex and extend the toes and has normal strength. I have reviewed the x-rays which show evidence of prior surgery. There is a spiral fracture of the femoral shaft. There are parotic and sclerotic areas of the bone including some intramedullary calcification or ossification which may be consistent with bone infarction. There is likely some postradiation bone damage present which may have contributed to his symptoms. I do not see any evidence of recurrent sarcoma although this would be difficult to see on the current imaging. I also do not see any destructive lesion involving the bone that would affect the structural integrity. I have reviewed his labs. Plan is to proceed with intramedullary nailing. We talked about risks benefits rehab and recovery. Informed consent was obtained. I marked the site with my initials.
[2024-07-15] MEDS: TRANEXAMIC ACID / 0.7% NACL 1,000 MG/100 ML BAG IV SCH ×3 (07:38→16:14)
[2024-07-15] MEDS: ceFAZolin 2000MG 2,000 MG/15 ML SYR IV SCH ×2 (07:38→16:14)
--- NOTE | 2024-07-15 08:32 | Hospitalist Progress Note ---
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 I agree with the impression and plan in the resident documentation, and as summarized below. 78-year-old male whom I know from the outpatient office admitted to our service after presenting to the emergency department subsequent to suffering a fall in his workshop. He reportedly tripped, fell, landed on his left leg and developed immediate discomfort in inability to bear weight. Imaging in the emergency department demonstrated a oblique fracture of the left femoral shaft with displacement. He is already been seen and evaluated emergency department by orthopedics with plans to go to the OR today. 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 He is seen postoperatively on the orthopedic floor. and son are at bedside. He feels quite well, pain well-controlled. In talking with him today, it does sound as if his leg " gave out" causing him to fall, rather than vice versa. This would further suggest a pathologic fracture, most likely secondary to his history of radiation of this area for treatment of a soft tissue sarcoma greater than 2 decades ago. EXAM 124/69, 85, 18, 36.6, 95% room air alert and oriented. Cardiovascular regular rate and rhythm. No murmurs appreciated lungs clear throughout with nonlabored respirations DATA Labs WBC 10.12, hemoglobin 14.4 sodium 134, potassium 4.1, BUN 16, creatinine 0.[address] of the left leg shows oblique fracture of the left femoral shaft. Plan imaging of the left femur also demonstrates sclerotic and lytic lesions within the mid and distal femur. Chest x-ray shows no acute abnormalities. IMPRESSION & PLAN Fall with displaced fracture, left mid femur Noted sclerotic and lytic lesions, mid and distal left femur Remote history of soft tissue sarcoma status postchemotherapy radiation Appreciate orthopedic consultation; scheduled for OR today Pathologic fracture and fall, suspect secondary to history of radiation therapy to same area Discussed imaging findings with the patient today; will follow-up as outpatient Additional per resident documentation Lanie Benoit Perez is a 78 Y O male with PMH of carpal tunnel syndrome bilaterally, UPJ obstruction history, history of malignant melanoma of skin, history of squamous cell carcinoma of skin, hyperlipidemia, and 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 He presented to ER after he fell in the workshop landing on his left leg and developed immediate discomfort and inability to bear weight. He was seen postoperatively on the orthopedic floor. and son are at bedside. He feels quite well, pain well-controlled. Review of Systems Review of Systems: per HPI Physical Exam Constitutional: WD/WN, vitals as above well developed; no acute distress Eyes: PERRL, conjunctivae normal, anicteric sclerae ENMT: external ear and nose normal, oropharynx normal Ears: no hearing impairment Neck: trachea midline, no thyromegaly trachea midline Respiratory: normal respiratory effort, lungs clear to auscultation normal respiratory effort and + respiratory distress; no labored breathing and no retractions Auscultation: lungs clear to auscultation bilaterally Cardiovascular: RRR, no murmur, no edema Rate/Rhythm: regular rate and regular rhythm Chest (Breasts): normal inspection/palpation of breasts Chest: normal inspection of chest Results & Data Results & Data Vital Signs (Past 12 Hours) Vital Signs Pulse Pulse Resp BP BP Pulse Ox O2 Del Method 07/15/24 06:24 89 10 L 146/80 H 07/15/24 05:36 110 H 22 167/85 H 07/15/24 04:33 74 16 151/78 H 07/15/24 04:03 72 14 149/79 H 07/15/24 03:27 76 14 159/84 H 07/15/24 03:00 77 15 158/92 H 07/15/24 02:30 80 19 163/85 H 07/15/24 02:00 76 15 151/91 H 07/15/24 01:30 74 13 154/95 H 96 07/15/24 00:36 74 14 163/87 H 94 07/15/24 00:06 80 21 184/120 H 93 07/14/24 23:30 88 20 174/106 H 97 07/14/24 23:00 83 16 180/106 H 97 07/14/24 21:33 78 18 163/102 H 99 Room Air 07/14/24 20:22 98 Room Air (1) Closed left femoral fracture Encounter type: initial encounter Femur location: unspecified portion of femur Fracture morphology: unspecified fracture morphology Qualified Code(s): S72.92XA - Unspecified fracture of left femur, initial encounter for closed fracture
--- NOTE | 2024-07-15 10:02 | Electrocardiogram Report ---
Test Reason : Blood Pressure : */* mmHG Vent. Rate : 72 BPM Atrial Rate : 72 BPM P-R Int : 196 ms QRS Dur : 88 ms QT Int : 412 ms P-R-T Axes : 55 31 40 degrees QTcB Int : 451 ms Normal sinus rhythm Normal ECG When compared with ECG of 29-Mar-2017 14:47, No significant change was found Confirmed by Abilio Merchant ([id number]) on 07/15/2024 10:02:22 AM Referred By: Confirmed By: Abilio Merchant
[2024-07-15] MEDS ORDERED: SUGAMMADEX SODIUM 200 MG/2 ML VIAL IV ONE (10:14)
[2024-07-15] MEDS: BUPIVACAINE 0.5 % 5 MG/1 ML MPF 30ML VIAL ONE (10:21)
[2024-07-15] MEDS: LIDOCAINE 1%/EPINEPHRINE 1:100,000 50 ML VIAL ONE (10:37)
--- NOTE | 2024-07-15 10:40 | Operative Report ---
Post Operative Report Pre & Post Diagnosis Operation Date: 07/15/24 07:30 Pre-Op Diagnosis: Closed left femoral fracture Post-Op Diagnosis: Closed left femoral fracture I identified the patient and participated in the time-out.: Yes Procedure Operation Date: 07/15/24 07:30 Actual Procedures p Left Femur Open Reduction Internal Fixation with Long Intramedullary Nail(Left) - Alfred August MD Surgeon Alfred August MD Rac Specialist Tobias Neely DO Estimated Blood Loss 25 Findings Consistent with Post-Op Diagnosis Specimens None Description of Procedure The patient was brought to the operative suite where he underwent anesthesia. Close reduction of the left femur fracture was performed utilizing assistance of the fracture table. Left lower extremities prepped and draped in usual sterile fashion. Surgical timeout was performed. The patient underwent a left femur closed reduction with internal fixation utilizing a cephalomedullary nail. Please see Dr. August's operative report for full details. I was present and assisted with patient positioning, limb positioning, fracture reduction, hardware placement, wound closure, postoperative dressing placement. The patient was awakened and taken to the recovery room in satisfactory condition. I attest to the content of the Intraoperative Record and any orders documented therein. Any exceptions are noted below.
--- NOTE | 2024-07-15 10:43 | Operative Report ---
Post Operative Report Pre & Post Diagnosis Operation Date: 07/15/24 07:30 Pre-Op Diagnosis: Closed left femoral fracture Post-Op Diagnosis: Closed left femoral fracture I identified the patient and participated in the time-out.: Yes Procedure Operation Date: 07/15/24 07:30 Actual Procedures p Left Femur Open Reduction Internal Fixation with Long Intramedullary Nail(Left) - Alfred August MD Surgeon Alfred August MD Glass Tinter Tobias Neely DO fellow Estimated Blood Loss 25 Findings Consistent with Post-Op Diagnosis Specimens None Drains None Anesthesia Type General Regional Complications none Disposition Accompanied Patient To Recovery: No Disposition: Recovery Room Indications Benoit is 78. He has a history of a left thigh soft tissue sarcoma resected surgically and treated with radiation and chemotherapy 25 years ago. He has had no recent problems or injuries. He was walking and turned. He thinks his leg may have broke and he fell down. This happened yesterday. He was seen in the emergency room. Admitted by medicine. Consulted by Dr. Neely. Spiral midshaft femur fracture. There are postsurgical changes as well as probable rad iation damage to the femur with bone infarction. There is also woodification of the soft tissues. I do not see any evidence of a cancerous lesion, metastatic or otherwise involving the bone or soft tissue. I recommended surgical stabilization he agreed to proceed. Description of Procedure Informed consent. Patient identified. He identified the procedure site as the left femur. I marked with my initials. A preoperative surgical timeout performed. Preop dose of IV antibiotics. Preoperative TXA. Taken to the OR. Olivia catheter inserted. Positioned supine on the fracture table. Padded perineal post. The legs were placed into balanced scissors suspension traction. Right leg down left leg up. Bony prominences were inspected and padded. The left arm was folded across the body padded with eggcrate and secured with a papoose. The left leg showed a previous anterolateral incision. The femur fracture was unstable. Traction was maintained. Feet were padded. There was soft tissue loss distally consistent with his prior surgery and also induration of the tissues consistent with postradiation changes. The leg was scrubbed then prepped and draped in usual sterile fashion. DVT prophy laxness postoperatively with early mobility and Eliquis. Mechanical devices. A 6 cm incision was made just proximal to the greater trochanter in line with it. Electrocautery was utilized down through the subcutaneous fat and fascia. The tip of the greater trochanter was identified. A guidepin was inserted and adjusted x 1 to be in the appropriate location at the tip of the trochanter in line with the shaft of the femur. This was then overreamed with the opening reamer. The fracture was reduced and the guide shlomo was passed down to the knee and confirmed to be intramedullary in multiplanar fluoroscopy. The shlomo length was determined to be 400 mm. Reaming began at 8.5 mm and progressed up to 12.5 mm while maintaining fracture reduction. The shlomo was then inserted and finished with blows by the mallet. While inserting rotation was adjusted as best as possible. Once the shlomo was partially inserted past the fracture site the traction was let off and the fracture was manually impacted with anatomic reduction. Fracture reduction was done clinically by assessing preoperative rotation as well as intraoperatively by matching fracture configuration and cortical thickness. Appeared to be anatomically aligned. A percutaneous guidepin was inserted using the provided jig and adjusted x 1 to be in the center center position of the femoral head. Length was determined to be 100 mm. Lateral reamer triple reamer. The spiral blade was inserted fully at the center center position confirmed fluoroscopically and statically locked with the setscrew. The proximal insertion apparatus was removed. 2 distal interlocking screws were inserted. 1 and dynamic 1 and static. This was done using the perfect [place] technique in a percutaneous fashion.[employer] Developer images were obtained of the fracture site and proximal distal screws. Alignment was anatomic or nearly so. Incisions were irrigated with sterile saline. The distal incisions were closed with 2-0 Vicryl. This tissue was noted to be scarred and white in the subcutaneous area. Yogi. The proximal incision was closed with #1 Vicryl on the fascial layer 0 Vicryl for the fatty space and 2-0 Vicryl in the dermal layer and yogi on the skin. The middle incision was closed in layers with zero 2-0 Vicryl and yogi. The leg was cleaned with wet and dry sponges saw sterile dressing was applied Xeroform 4 x 4's ABD foam tape. Local anesthetic 1% lidocaine and half percent Marcaine were injected in the incisions. Patient was removed from the fracture table transferred to the hospital bed in stable condition after being awakened from anesthesia. He was then taken to the recovery room in stable condition. There were no specimens or complications counts were correct blood loss is estimated to be 25 cc I left a message for the family/ at the conclusion of the operation. Toe-touch weightbearing. Eliquis for DVT prophylaxis. A Synthes long trochanteric femoral nail was inserted. 11 x 400 mm with a 100 mm spiral blade and 2 distal screws 5 mm x 48 and 52 mm in length. I attest to the content of the Intraoperative Record and any orders documented therein. Any exceptions are noted below.
--- NOTE | 2024-07-15 11:18 | Anesthesiology Progress Note ---
Date of Service July 15, 2024 Anesthesia Post Procedure Vital Signs Vital Signs: Temp Pulse Pulse Resp BP BP Pulse Ox 07/15/24 11:10 36.4 C L 74 19 150/82 H 100 07/15/24 11:00 73 12 160/81 H 100 07/15/24 10:50 77 12 163/82 H 100 07/15/24 10:42 36.0 C L 76 12 171/84 H 100 07/15/24 06:24 89 10 L 146/80 H 07/15/24 05:36 110 H 22 167/85 H 07/15/24 04:33 74 16 151/78 H 07/15/24 04:03 72 14 149/79 H 07/15/24 03:27 76 14 159/84 H 07/15/24 03:00 77 15 158/92 H 07/15/24 02:30 80 19 163/85 H 07/15/24 02:00 76 15 151/91 H 07/15/24 01:30 74 13 154/95 H 96 07/15/24 00:36 74 14 163/87 H 94 07/15/24 00:06 80 21 184/120 H 93 07/14/24 23:30 88 20 174/106 H 97 07/14/24 23:00 83 16 180/106 H 97 07/14/24 21:33 78 18 163/102 H 99 07/14/24 20:22 98 07/14/24 20:12 75 07/14/24 20:11 36.5 C 71 18 152/78 H 98 O2 Del Method O2 Flow Rate 07/15/24 11:10 Room Air 0 07/15/24 11:00 Oxymask 4 07/15/24 10:50 Oxymask 8 07/15/24 10:42 Oxymask 8 07/15/24 06:24 07/15/24 05:36 07/15/24 04:33 07/15/24 04:03 07/15/24 03:27 07/15/24 03:00 07/15/24 02:30 07/15/24 02:00 07/15/24 01:30 07/15/24 00:36 07/15/24 00:06 07/14/24 23:30 07/14/24 23:00 07/14/24 21:33 Room Air 07/14/24 20:22 Room Air 07/14/24 20:12 07/14/24 20:11 Room Air Pain Intensity Left Upper Leg: Pain Intensity: 7 Transfer of Care Handoff Completed per policy Notes Mental Status: alert / awake / arousable Patient Amnestic to Procedure: Yes Nausea / Vomiting: adequately controlled Pain: adequately controlled Airway Patency, RR, SpO2: stable & adequate BP & HR: stable & adequate Hydration State: stable & adequate Anesthetic Complications: no major complications apparent
[2024-07-15] MEDS ORDERED: traMADol HCL 50 MG TABLET PO PRN (11:54)
[2024-07-15] MEDS ORDERED: NALOXONE HCL 0.4 MG/1 ML VIAL/CARP IV PRN (11:54)
[2024-07-15] MEDS ORDERED: ONDANSETRON INJ 2 MG/ML 2 ML VIAL IV PRN (11:54)
[2024-07-15] MEDS ORDERED: MAGNESIUM HYDROXIDE SUSP 30 ML UDC PO PRN (11:54)
[2024-07-15] MEDS ORDERED: bisacodyL 10 MG SUPP PR PRN (11:54)
[2024-07-15] MEDS ORDERED: KETOROLAC TROMETHAMINE 15 MG/ML VIAL IV PRN (11:54)
[2024-07-15] MEDS ORDERED: METOCLOPRAMIDE HCL INJ 5 MG/ML 2 ML VIAL IV PRN (11:54)
[2024-07-15] MEDS ORDERED: oxyCODONE HCL IR 5 MG TAB (IMMEDIATE RELEASE) PO PRN (11:54)
[2024-07-15] MEDS: SENNA 8.6 MG TAB PO SCH (20:39)
[2024-07-15] MEDS: DOCUSATE SODIUM 100 MG CAP PO SCH (20:40)
[2024-07-15] MEDS: SIMVASTATIN 10 MG TAB PO SCH (21:03)
[2024-07-16 06:17] LABS: Basophils # (auto) 0.02 K/uL (0.00-0.20); Basophils % (auto) 0.2 %; Eosinophils # (auto) 0.05 K/uL (0.00-0.50); Eosinophils % (auto) 0.4 %; Hematocrit (blood only) 37.7 % (42.0-52.0); Hemoglobin 13.2 g/dl (14.0-18.0); Immature Granulocytes # (auto) 0.04 K/uL (0.01-0.20); Immature Granulocytes % (auto) 0.3 %; Lymphocytes # (auto) 1.72 K/uL (1.20-3.40); Mean Corpuscular Volume 91.5 fL (80.0-100.0); Mean Platelet Volume 10.4 fL (9.4-12.4); Monocytes # (auto) 1.28 K/uL (0.11-0.59); Monocytes % (auto) 11.2 %; Neutrophils # (auto) 8.32 K/uL (1.40-6.50); Neutrophils % (auto) 72.9 %; Platelet Count 259 K/uL (130-400); RDW Coefficient of Variation 14.1 % (11.5-14.5); RDW Standard Deviation 47.9 fL (36.4-46.3); Red Blood Count 4.12 M/uL (4.70-6.10); White Blood Count 11.43 K/ul (4.8-10.8)
[2024-07-16 06:22] LABS: Albumin Globulin Ratio 1.3 (0.9-2); Albumin Level 3.9 gm/dl (3.4-5.0); BUN Creatinine Ratio 21.4 (10-20); Bilirubin,Total 1.3 mg/dl (0.2-1.0); Calcium 9.1 mg/dl (8.6-10.3); Creatinine Clr Calc Pharmacy 67.1 ml/min; Globulin 2.9 gm/dl (2.5-4.0); Magnesium 2.1 mg/dl (1.7-2.4); Phosphorus 3.1 mg/dl (2.5-4.9); Potassium 4.1 mmol/L (3.5-5.1); Total Protein 6.8 gm/dl (6.0-8.3)
[2024-07-16 06:31] LABS: Partial Thromboplastin Time 26 Seconds (21-31); Prothrombin Time 11.1 Seconds (9.0-12.0)
--- NOTE | 2024-07-16 08:19 | Hospitalist Progress Note ---
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 I agree with the impression and plan in the resident documentation, and as summarized below. 78-year-old male whom I know from the outpatient office admitted to our service after presenting to the emergency department subsequent to suffering a fall in his workshop. He reportedly tripped, fell, landed on his left leg and developed immediate discomfort in inability to bear weight. Imaging in the emergency department demonstrated a oblique fracture of the left femoral shaft with displacement. He is already been seen and evaluated emergency department by orthopedics with plans to go to the OR today. 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 He is seen postoperatively on the orthopedic floor. and son are at bedside. He feels quite well, pain well-controlled. In talking with him today, it does sound as if his leg " gave out" causing him to fall, rather than vice versa. This would further suggest a pathologic fracture, most likely secondary to his history of radiation of this area for treatment of a soft tissue sarcoma greater than 2 decades ago. Feels quite well this morning. Olivia has been removed and he has voided without difficulty. He is able to ambulate to the bathroom with toe-touch and walker. EXAM 131/71, 75, 18 Alert and oriented. Cardiovascular regular rate and rhythm. No murmurs appreciated Lungs clear throughout with nonlabored respirations DATA Labs WBC 11.43, hemoglobin 13.2 sodium 137, potassium 4.1, BUN 11, creatinine 1.[address] of the left leg shows oblique fracture of the left femoral shaft. Plan imaging of the left femur also demonstrates sclerotic and lytic lesions within the mid and distal femur. Chest x-ray shows no acute abnormalities. IMPRESSION & PLAN Fall with displaced fracture, left mid femur Noted sclerotic and lytic lesions, mid and distal left femur Remote history of soft tissue sarcoma status postchemotherapy radiation Doing well postop day #1 No issues medically; anticipate discharge home when appropriate from orthopedic standpoint I can follow-up with him as an outpatient with regards to findings noted on plain film imaging. 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 He presented to ER after he fell in the workshop landing on his left leg and developed immediate discomfort and inability to bear weight. Overnight events: Slept well. No any acute overnight events. Ongoing symptoms: His pain is well controlled with medications. Denies dizziness, weakness, tingling and numbness. Was able to go to bathroom with some support and using walker. New concerns:No any. Review of Systems Review of Systems: per HPI Physical Exam Constitutional: WD/WN, vitals as above well developed; no acute distress Eyes: PERRL, conjunctivae normal, anicteric sclerae ENMT: external ear and nose normal, oropharynx normal Ears: no hearing impairment Neck: trachea midline, no thyromegaly trachea midline Respiratory: normal respiratory effort, lungs clear to auscultation normal respiratory effort and + respiratory distress; no labored breathing and no retractions Auscultation: lungs clear to auscultation bilaterally Cardiovascular: RRR, no murmur, no edema Rate/Rhythm: regular rate and regular rhythm Chest (Breasts): normal inspection/palpation of breasts Chest: normal inspection of chest Results & Data Results & Data Vital Signs (Past 12 Hours) Vital Signs Temp Pulse Resp BP Pulse Ox O2 Del Method 07/16/24 07:18 36.8 C 75 18 131/71 97 Room Air 07/16/24 04:07 36.8 C 74 14 135/72 97 Room Air 07/16/24 00:04 37 C 70 14 119/66 96 Room Air (1) Closed left femoral fracture Encounter type: initial encounter Femur location: unspecified portion of femur Fracture morphology: unspecified fracture morphology Qualified Code(s): S72.92XA - Unspecified fracture of left femur, initial encounter for closed fracture
[2024-07-16] MEDS: MULTIVITAMIN TAB PO SCH (09:28)
[2024-07-16] MEDS: APIXABAN 2.5 MG TAB PO SCH (09:28)
--- NOTE | 2024-07-16 15:26 | Orthopedic Progress Note ---
Date of Service July 16, 2024 Assessment & Plan (1) Closed left femoral fracture: Plan: Afebrile. Vitals are stable. Labs are noted. Hemoglobin and hematocrit are acceptable. He is doing very well with physical therapy. He has been started on his Eliquis. We will continue PT and OT. Will reassess tomorrow. Will discuss suitable rehab placement for him depending on PT and OT eval. He may be able to go home without outpatient or home services or inpatient rehab depending on the circumstances. Surgical findings and results were discussed with him. He denies any problems with the leg prior to the injury. It sounds like he twisted the leg under normal circumstances and fractured it before he fell. Admission and Anticipated Discharge Date Admission Date: July 14, 2024 Subjective Patient reports no significant problems. He has been up with physical therapy and is currently sitting in a chair. He is tolerating a regular diet. He denies tingling and numbness. His pain is well-controlled Physical Exam Physical Exam: Dressing is clean and dry. Thigh is soft. He can bend his knee about 90 degrees and extend to about -30. He has 4+ out of 5 knee flexion and extension strength. He has 5 out of 5 ankle and toe plantarflexion dorsiflexion and eversion strength. Sensation is intact. The leg is not swollen. DP and PT pulses are 1+. Results & Data Vital Signs (Past 12 Hours) Vital Signs Temp Pulse Resp BP Pulse Ox O2 Del Method 07/16/24 11:30 36.8 C 87 18 143/69 H 98 Room Air 07/16/24 07:18 36.8 C 75 18 131/71 97 Room Air 07/16/24 04:07 36.8 C 74 14 135/72 97 Room Air Laboratory Results Laboratory Results WBC 11.43 K/ul (4.8-10.8) H 07/16/24 05:32 RBC 4.12 M/uL (4.70-6.10) L 07/16/24 05:32 Hgb 13.2 g/dl (14.0-18.0) L 07/16/24 05:32 Hct 37.7 % (42.0-52.0) L 07/16/24 05:32 MCV 91.5 fL (80.0-100.0) 07/16/24 05:32 MCH 32.0 pg (25.0-34.0) 07/16/24 05:32 MCHC 35.0 g/dL (32.0-36.0) 07/16/24 05:32 RDW Std Deviation 47.9 fL (36.4-46.3) H 07/16/24 05:32 RDW Coeff of Rachel 14.1 % (11.5-14.5) 07/16/24 05:32 Plt Count 259 K/uL (130-400) 07/16/24 05:32 MPV 10.4 fL (9.4-12.4) 07/16/24 05:32 Immature Gran % (Auto) 0.3 % 07/16/24 05:32 Neut % (Auto) 72.9 % 07/16/24 05:32 Lymph % (Auto) 15.0 % 07/16/24 05:32 [place] % (Auto) 11.2 % 07/16/24 05:32 Eos % (Auto) 0.4 % 07/16/24 05:32 Baso % (Auto) 0.2 % 07/16/24 05:32 Neut # (Auto) 8.32 K/uL (1.40-6.50) H 07/16/24 05:32 Lymph # (Auto) 1.72 K/uL (1.20-3.40) 07/16/24 05:32 [place] # (Auto) 1.28 K/uL (0.11-0.59) H 07/16/24 05:32 Eos # (Auto) 0.05 K/uL (0.00-0.50) 07/16/24 05:32 Baso # (Auto) 0.02 K/uL (0.00-0.20) 07/16/24 05:32 Immature Gran # (Auto) 0.04 K/uL (0.01-0.20) 07/16/24 05:32 PT 11.1 Seconds (9.0-12.0) 07/16/24 05:32 INR 1.0 (0.9-1.1) 07/16/24 05:32 APTT 26 Seconds (21-31) 07/16/24 05:32 PTT Ratio 1.0 07/16/24 05:32 Sodium 137 mmol/L (136-145) 07/16/24 05:32 Potassium 4.1 mmol/L (3.5-5.1) 07/16/24 05:32 Chloride 102 mmol/L (98-107) 07/16/24 05:32 Carbon Dioxide 29 mmol/L (21-32) 07/16/24 05:32 Anion Gap 6 (3-11) 07/16/24 05:32 BUN 22 mg/dl (6-23) 07/16/24 05:32 Creatinine 1.03 mg/dl (0.6-1.4) 07/16/24 05:32 Est Cr Clr Drug Dosing 67.1 ml/min 07/16/24 05:32 eGFR 74.35 07/16/24 05:32 BUN/Creatinine Ratio 21.4 (10-20) H 07/16/24 05:32 Glucose 112 mg/dl (70-99(Fasting)) H 07/16/24 05:32 Calcium 9.1 mg/dl (8.6-10.3) 07/16/24 05:32 Phosphorus 3.1 mg/dl (2.5-4.9) 07/16/24 05:32 Magnesium 2.1 mg/dl (1.7-2.4) 07/16/24 05:32 Total Bilirubin 1.3 mg/dl (0.2-1.0) H 07/16/24 05:32 AST 34 U/L (13-39) 07/16/24 05:32 ALT 23 U/L (7-52) 07/16/24 05:32 Alkaline Phosphatase 76 U/L (34-104) 07/16/24 05:32 Troponin I High Sens 7.2 pg/ml (0-20) 07/14/24 20:25 Total Protein 6.8 gm/dl (6.0-8.3) 07/16/24 05:32 Albumin 3.9 gm/dl (3.4-5.0) 07/16/24 05:32 Globulin 2.9 gm/dl (2.5-4.0) 07/16/24 05:32 Albumin/Globulin Ratio 1.3 (0.9-2) 07/16/24 05:32 Impressions (1) Closed left femoral fracture Encounter type: initial encounter Femur location: unspecified portion of femur Fracture morphology: unspecified fracture morphology Qualified Code(s): S72.92XA - Unspecified fracture of left femur, initial encounter for closed fracture
[2024-07-17 06:43] LABS: Basophils # (auto) 0.06 K/uL (0.00-0.20); Basophils % (auto) 0.6 %; Eosinophils # (auto) 0.09 K/uL (0.00-0.50); Eosinophils % (auto) 0.9 %; Hematocrit (blood only) 38.4 % (42.0-52.0); Hemoglobin 13.5 g/dl (14.0-18.0); Immature Granulocytes # (auto) 0.04 K/uL (0.01-0.20); Immature Granulocytes % (auto) 0.4 %; Lymphocytes # (auto) 1.88 K/uL (1.20-3.40); Lymphocytes % (auto) 17.9 %; Mean Corpuscular Hemoglobin 32.3 pg (25.0-34.0); Mean Corpuscular Hgb Conc 35.2 g/dL (32.0-36.0); Mean Corpuscular Volume 91.9 fL (80.0-100.0); Mean Platelet Volume 10.5 fL (9.4-12.4); Monocytes # (auto) 1.41 K/uL (0.11-0.59); Monocytes % (auto) 13.4 %; Neutrophils # (auto) 7.03 K/uL (1.40-6.50); Neutrophils % (auto) 66.8 %; Platelet Count 259 K/uL (130-400); RDW Coefficient of Variation 14.3 % (11.5-14.5); RDW Standard Deviation 48.2 fL (36.4-46.3); Red Blood Count 4.18 M/uL (4.70-6.10); White Blood Count 10.51 K/ul (4.8-10.8)
[2024-07-17 07:09] LABS: INR 1.1 (0.9-1.1); Partial Thromboplastin Ratio 1.1; Partial Thromboplastin Time 29 Seconds (21-31); Prothrombin Time 11.4 Seconds (9.0-12.0)
[2024-07-17 07:15] LABS: Albumin Level 3.8 gm/dl (3.4-5.0); BUN Creatinine Ratio 19.4 (10-20); Creatinine Clr Calc Pharmacy 67.1 ml/min; Phosphorus 2.8 mg/dl (2.5-4.9); Potassium 4.2 mmol/L (3.5-5.1)
--- NOTE | 2024-07-17 07:19 | Fluoroscopy Report ---
FL femur LT 2V CLINICAL HISTORY: LEFT FEMUR FXacute fracture of the left femur COMPARISON STUDY: Radiographs 07/14/2024 FLUOROSCOPY TIME: 244.4 seconds FLUOROSCOPY IMAGES: 7 EXPOSURE DOSE: 41.64 mGy FINDINGS: Status post placement of intramedullary shlomo with intertrochanteric nail fixating the acute femoral diaphyseal fracture with improved alignment. Soft tissue swelling with alden project over t he mid thigh. IMPRESSION: Fluoroscopic assistance was above. ACT 112: Negative or not required by law. Electronically signed by: Quinn Dorado M.D. 07/17/2024 7:17 AM
--- NOTE | 2024-07-17 07:45 | Hospitalist Progress Note ---
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 He presented to ER after he fell in the workshop landing on his left leg and developed immediate discomfort and inability to bear weight. Overnight events: Slept well. No any acute overnight events. Ongoing symptoms: His pain is well controlled with medications.Little pain with medications. Denies dizziness, weakness, tingling and numbness. Was able to go to bathroom with some support and using walker. New concerns:No any. Vitals: Stable Labs: WNL 1)ORIF with Long IntraMedullary Nail for Closed left femoral shaft fracture- Dressing is clean and dry. Thigh is soft. He can bend his knee about 90 degrees and extend to about -30. He has 4+ out of 5 knee flexion and extension strength. He has 5 out of 5 ankle and toe plantarflexion dorsiflexion and eversion strength. Sensation is intact. The leg is not swollen. DP and PT pulses are 1+. Review of Systems Review of Systems: per HPI Physical Exam Constitutional: WD/WN, vitals as above well developed; no acute distress Eyes: PERRL, conjunctivae normal, anicteric sclerae ENMT: external ear and nose normal, oropharynx normal Ears: no hearing impairment Neck: trachea midline, no thyromegaly trachea midline Respiratory: normal respiratory effort, lungs clear to auscultation normal respiratory effort and + respiratory distress; no labored breathing and no retractions Auscultation: lungs clear to auscultation bilaterally Cardiovascular: RRR, no murmur, no edema Rate/Rhythm: regular rate and regular rhythm Chest (Breasts): normal inspection/palpation of breasts Chest: normal inspection of chest Results & Data Results & Data Vital Signs (Past 12 Hours) Vital Signs Temp Pulse Pulse Resp BP Pulse Ox O2 Del Method 07/17/24 07:35 36.8 C 86 16 128/84 97 Room Air 07/17/24 07:15 36.9 C 84 16 107/69 97 Room Air (1) Closed left femoral fracture Encounter type: initial encounter Femur location: unspecified portion of femur Fracture morphology: unspecified fracture morphology Qualified Code(s): S72.92XA - Unspecified fracture of left femur, initial encounter for closed fracture
[2024-07-17] MEDS: fentaNYL citrate PF 100 MCG/2 ML VIAL ONE (07:57)
--- NOTE | 2024-07-17 11:12 | Orthopedic Progress Note ---
Date of Service July 17, 2024 Assessment & Plan (1) Closed left femoral fracture: Plan: Postop day 1 status post open reduction internal fixation left femoral fracture with long IM nail with Dr. August 07/16/2024 The patient is doing very well and was cleared by physical therapy to return to home with home therapy. From an orthopedic standpoint we are okay with this and patient can be discharged if cleared by primary team. Patient dressing was changed today. He can shower on postop day 4. He can change his dressings with gauze and tape. He can use a walker for ambulation. He is flatfoot weightbearing. Follow-up in the office in 2 weeks for staple removal with Dr. August. Continue with Eliquis and pain control per medicine. Please tigertext or contact our office with any further questions or concerns. Admission and Anticipated Discharge Date Admission Date: July 14, 2024 Subjective Patient was seen and examined bedside with Dr. Ríos. He says he is doing well. Minimal pain. He has been able to ambulate on his own with a walker. Physical Exam Physical Exam: Left lower extremity: Surgical dressing was taken down. Incisions are well- approximated, no drainage. Minimal redness and bruising around incision site, expected postoperatively. These were redressed with Xeroform, gauze and Tegaderms. Patient could wiggle his toes and pump his ankle. He was able to do quad set but struggled with a straight leg raise. He could slightly bend and flex his knee. He was able to ambulate on his own with a walker and do bed to chair and chair to bed transfers. Results & Data Vital Signs (Past 12 Hours) Vital Signs Temp Pulse Pulse Resp BP Pulse Ox O2 Del Method 07/17/24 07:35 36.8 C 86 16 128/84 97 Room Air 07/17/24 07:15 36.9 C 84 16 107/69 97 Room Air Laboratory Results 07/17/24 Range/Units 05:47 WBC 10.51 (4.8-10.8) K/ul RBC 4.18 L (4.70-6.10) M/uL Hgb 13.5 L (14.0-18.0) g/dl Hct 38.4 L (42.0-52.0) % MCV 91.9 (80.0-100.0) fL MCH 32.3 (25.0-34.0) pg MCHC 35.2 (32.0-36.0) g/dL RDW Std Deviation 48.2 H (36.4-46.3) fL RDW Coeff of Rachel 14.3 (11.5-14.5) % Plt Count 259 (130-400) K/uL MPV 10.5 (9.4-12.4) fL Immature Gran % (Auto) 0.4 % Neut % (Auto) 66.8 % Lymph % (Auto) 17.9 % Morehouse % (Auto) 13.4 % Eos % (Auto) 0.9 % Baso % (Auto) 0.6 % Neut # (Auto) 7.03 H (1.40-6.50) K/uL Lymph # (Auto) 1.88 (1.20-3.40) K/uL Morehouse # (Auto) 1.41 H (0.11-0.59) K/uL Eos # (Auto) 0.09 (0.00-0.50) K/uL Baso # (Auto) 0.06 (0.00-0.20) K/uL Immature Gran # (Auto) 0.04 (0.01-0.20) K/uL PT 11.4 (9.0-12.0) Seconds INR 1.1 (0.9-1.1) APTT 29 (21-31) Seconds PTT Ratio 1.1 Sodium 135 L (136-145) mmol/L Potassium 4.2 (3.5-5.1) mmol/L Chloride 103 (98-107) mmol/L Carbon Dioxide 26 (21-32) mmol/L Anion Gap 6 (3-11) BUN 20 (6-23) mg/dl Creatinine 1.03 (0.6-1.4) mg/dl Est Cr Clr Drug Dosing 67.1 ml/min eGFR 74.35 BUN/Creatinine Ratio 19.4 (10-20) Glucose 106 H (70-99(Fasting)) mg/dl Calcium 9.0 (8.6-10.3) mg/dl Phosphorus 2.8 (2.5-4.9) mg/dl Magnesium 2.0 (1.7-2.4) mg/dl Albumin 3.8 (3.4-5.0) gm/dl (1) Closed left femoral fracture Encounter type: initial encounter Femur location: unspecified portion of femur Fracture morphology: unspecified fracture morphology Qualified Code(s): S72.92XA - Unspecified fracture of left femur, initial encounter for closed fracture
[2024-07-17 11:55] VITALS: BP 140/82; PULSE 82; TEMP 97.7; O2SAT 99
[2024-07-17 12:44] VITALS: RESP 17
--- NOTE | 2024-07-17 18:34 | Discharge Summary ---
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 Workup in the emergency department included a x-ray of the left femur which showed a closed fracture of the femur, with CT scan of femur confirming oblique fracture of the left femoral shaft, being displaced laterally up to 3.5 cm. The patient was seen by orthopedic surgery in the emergency department, with plans to undergo shlomo placement on 07/16. Updated Medication List Medication Instructions Recorded Confirmed Type cholecalciferol (vitamin D3) 25 1,000 unit PO DAILY 02/16/19 04/25/24 History mcg (1,000 unit) tablet multivitamin (Multiple Vitamins 1 tab PO DAILY 02/16/19 04/25/24 History tablet) vitamin B complex 1 tab PO DAILY 02/16/19 04/25/24 History simvastatin 20 mg tablet 10 mg PO QPM 09/24/20 04/25/24 History apixaban 2.5 mg tablet (Eliquis) 2.5 mg PO BID 14 days #28 tabs 07/17/24 Rx docusate sodium 100 mg capsule 100 mg PO BID 3 days #6 caps 07/17/24 Rx Hospital Stay Data Consultations 07/14/24 21:25 ED Decision to Admit Stat 07/14/24 22:12 Consult Orthopedic Surgery Routine Procedures Performed Operation Date: 07/15/24 07:30 Actual Procedures p Left Femur Open Reduction Internal Fixation with Long Intramedullary Nail(Left) - Alfred August MD Diagnostic Imagining Performed 07/14/24 20:13 CT femur LT wo con Stat 07/15/24 FL femur LT 2V Routine Pending Results Patient Have Any Pending Studies at Discharge: No Discharge Instructions Given to Patient (Per Discharging Provider) You presented to ER on 07/14 after you fell in your workshop landing on your left leg and developed immediate discomfort and disability to bear weight.On Xray of left femur, it was revealed that you had oblique fracture of left femoral shaft. You were operated on 07/14 and had Open Reduction with Long Intramedullary Nail for Closed Left Femoral Shaft Fracture. You were doing well Post Operative. You were evaluated by Orthopaedics team and Physical Therapy and Occupational Therapy team.According to PT/OT evaluation, you may be able to go home without outpatient or home services or inpatient rehab.So we feel you are stable to go home. Follow up: -Schedule with your PCP Dr. David Linton for follow up within a week. -You are scheduled with Dr August for followup in 2 weeks. You are scheduled on 07/31/24 at 1:30 PM. Your medication list has been reviewed and reconciled upon discharge to ensure accuracy and continuity of care. An updated list of all your medications is included with your hospital discharge paperwork. Please review this list closely, and make note of any changes. -We sent a new medication called Eliquis to your pharmacy. Take Eliquis 2.5 mg two times a day every 12 hr for 14 days. Eliquis is indicated to prevent Deep Venous Thrombosis. -We sent a new medication called Docusate sodium to your pharmacy. Take Docusate Sodium 100 mg 2 times a day every 12 hr for 3 days. -For Pain, Take OTC Tylenol not more than 2000mg per day. If you have any issues filling these prescriptions, please call [phone] and ask to leave a message for Dr. Jose Kaur. Take your medications as instructed; do not skip a dose of your medicines. Make sure all of your doctors know every medicine you are taking (including [id number] medicines, vitamins, and supplements). Call your primary care provider before taking any new medicines (including overthe-counter medicines, vitamins, and supplements), because some of these may interact with your current medications, or may make your symptoms worse. Tell your primary care provider if you cannot afford your medications. CONTACT YOUR PRIMARY CARE PROVIDER if you experience any of the following: Tingling, numbness and increased pain in thigh Signs of infection like redness, warmness and increased pain in your operative site. Difficulty following your treatment plan, or difficulty taking medications CALL 911 OR GO TO THE EMERGENCY DEPARTMENT if you experience any of the following: Sudden, severe abdominal pain or nausea/vomiting Severe chest pain, or chest pain that radiates (moves) to your jaw or arm Sudden, severe shortness of breath or difficulty breathing Thank you for allowing us to participate in your care. . Total Time Total Time Spent Total Time Spent (In Minutes): <30
--- NOTE | 2024-07-17 18:34 | Billing Data ---
Date of Service July 17, 2024 Coding Level of Care Code 82363 IN/OBS DISCH 30 MIN/LESS
== END 2024-07-17 15:08 | disposition home health service (06) | DRG 482 ==
LOC: ED 20:06 → SUATTDRO 22:15 → EDINP 22:15 → 3E 07-15 12:29